=== PATIENT | female | born 1990 | race Caucasian/White ===

== ENCOUNTER 2016-05-30 14:04 | Outpatient (CLI) | payer MEDICAID ==
[2016-05-30 14:48] LABS: AMORPHOUS SEDIMENT,URINE TRACE /HPF; APPEARANCE,URINE CLOUDY; BILIRUBIN,URINE NEGATIVE (NEGATIVE); GLUCOSE, URINE NEGATIVE (NEGATIVE); KETONES,URINE NEGATIVE (NEGATIVE); LEUKOCYTE ESTERASE,URINE NEGATIVE (NEGATIVE); NITRITE,URINE NEGATIVE (NEGATIVE); PROTEIN,URINE NEGATIVE (NEGATIVE); URINE SPECIFIC GRAVITY 1.006; UROBILINOGEN,URINE NEGATIVE mg/dL (<2.0)
[2016-05-30 14:55] LABS: ABSOLUTE BASOPHILS # (AUTO) 0.1 10^3/uL (0.0-0.2); ABSOLUTE EOSINOPHILS # (AUTO) 0.2 10^3/uL (0.0-0.6); ABSOLUTE LYMPHOCYTES (AUTO) 2.7 10^3/uL (0.5-4.7); ABSOLUTE MONOCYTES (AUTO) 0.5 10^3/uL (0.1-1.4); ABSOLUTE NEUT (AUTO) 7.9 10^3/uL (1.7-8.2); BASOPHILS % (AUTO) 0.5 % (0-2); EOSINOPHILS % (AUTO) 2.2 % (0-6); HEMATOCRIT 30.9 % (36.0-47.0); HEMOGLOBIN 10.4 g/dL (12.0-15.5); HGB HCT DIFFERENCE 0.3; LYMPHOCYTES % (AUTO) 23.4 % (13-45); MEAN CORPUSCULAR HGB CONC 33.8 g/dL (32.0-36.0); MEAN CORPUSCULAR VOLUME 92 fl (80-97); MONOCYTES % (AUTO) 4.7 % (3-13); RED BLOOD COUNT 3.37 10^6/uL (3.72-5.28); SEGMENTED NEUTROPHILS % (AUTO) 69.2 % (42-78); WHITE BLOOD COUNT 11.4 10^3/uL (4.0-10.5)
[2016-05-30 15:02] LABS: URINE BARBITURATES SCREEN NEGATIVE; URINE METHADONE SCREEN NEGATIVE; URINE OPIATES LOW NEGATIVE; URINE PHENCYCLIDINE SCREEN NEGATIVE
[2016-05-30 15:13] LABS: ALANINE AMINOTRANSFERASE 19 U/L (9-52); ALBUMIN 3.4 g/dL (3.5-5.0); ALKALINE PHOSPHATASE 138 U/L (38-126); ANION GAP 12 (5-19); ASPARTATE AMINO TRANSFERASE 17 U/L (14-36); BILIRUBIN,DIRECT 0.3 mg/dL (0.0-0.4); BILIRUBIN,TOTAL 0.5 mg/dL (0.2-1.3); BLOOD UREA NITROGEN 6 mg/dL (7-20); CALCIUM 10.4 mg/dL (8.4-10.2); CARBON DIOXIDE 22 mmol/L (22-30); CHLORIDE 104 mmol/L (98-107); GLUCOSE 83 mg/dL (75-110); LDH 564 U/L (313-618); POTASSIUM 4.4 mmol/L (3.6-5.0); SODIUM 138.3 mmol/L (137-145); TOTAL PROTEIN 6.1 g/dL (6.3-8.2); URIC ACID 5.6 mg/dL (2.5-6.2)
--- NOTE | 2016-05-30 15:57 | Non Stress Test Report ---
Non Stress Test Datetime Report Generated by CPN: 05/30/2016 15:57 INDICATION Indication for Study: Ordered by Provider; Other Indication for Study (NST) Other: sent from [facility] first visit today MONITORING Monitor Explained: Monitor Explained; Test Explained; Patient Verbalized Understanding Time on Monitor: 05/30/2016 15:27 Time off Monitor: 05/30/2016 15:47 NST Duration: 20 NST INTERVENTIONS NST Interventions: PO Hydration; Reposition Patient Physician Notified NST: Dr. Neilsen BABY A: [id number] BABY A Movement : Present Contraction Frequency : irregular FHR Baseline : 130 Accelerations : 15X15 Decelerations : None Variability : Moderate 6-25bpm NST Review: Meets Criteria for Reactive NST NST Review and Verified By : rmarhefka, RN NST Results: Reactive NST REPORT Report Trigger: Send Report
--- NOTE | 2016-05-30 19:21 | L&D Discharge Summary ---
OB Discharge Summary Datetime Report Generated by CPN: 05/30/2016 19:21 DISCHARGE DIAGNOSIS Diagnosis/Symptoms: Other Diagnoses/Symptoms Other: IUP 35+2 elevated blood pressures DIET/ACTIVITY/RESTRICTIONS Diet: Regular Activity: Normal Activity TEACHING/INSTRUCTIONS/REFERRALS Instructions Given To: Pt Instructions Understood: Patient Verbalized Understanding Referrals: None Educational Materials- Other: NST Pre-eclampsia DISCHARGE INFORMATION Discharged AMA: No Discharge Date/Time: 05/30/2016 16:10 Discharged To: Home Discharge Provider Name: DrHerminio Schillingen Accompanied By: Significant Other Discharge Method: Ambulatory Condition: Stable FOLLOW UP INFORMATION Follow Up With: Other-Annotate Follow Up On: As Scheduled Follow Up Phone Number: Other-Annotate Comments: Pt instructed to follow up @ [facility] on Saturday for a NST.
== END 2016-05-30 16:10 | disposition home or self-care (01) ==
LOC: LC 14:04
PROVIDERS: ATTEND Specialist
PROC: 4A1HXCZ Monitoring of Products of Conception, Cardiac Rate, External Approach (ICD-10-PCS; principal; 2016-05-30)
DX: O16.3 Unspecified maternal hypertension, third trimester (principal); O09.33 Supervision of pregnancy with insufficient antenatal care, third trimester; Z3A.35 35 weeks gestation of pregnancy
CPT/HCPCS: 36415; 59025; 76815; 80053; 80307; 81001; 83615; 84550; 85025; 87081

== ENCOUNTER 2016-06-02 13:59 | Outpatient (CLI) | payer MEDICAID ==
--- NOTE | 2016-06-02 15:18 | Non Stress Test Report ---
Non Stress Test Datetime Report Generated by CPN: 06/02/2016 15:17 DEMOGRAPHIC EGA NST: 35.5 INDICATION Indication for Study: Ordered by Provider MONITORING Monitor Explained: Monitor Explained; Test Explained; Patient Verbalized Understanding Time on Monitor: 06/02/2016 14:15 Time off Monitor: 06/02/2016 15:07 NST Duration: 52 NST INTERVENTIONS NST Interventions: PO Hydration Physician Notified NST: Dr. Roland BABY A Movement : Present Contraction Frequency : 0 FHR Baseline : 135 Accelerations : 15X15 Decelerations : None Variability : Moderate 6-25bpm NST Review: Meets Criteria for Reactive NST NST Review and Verified By : Rachael Leyva RN NST Results: Reactive NST REPORT Report Trigger: Send Report
--- NOTE | 2016-06-02 18:19 | L&D Discharge Summary ---
OB Discharge Summary Datetime Report Generated by CPN: 06/02/2016 18:19 DISCHARGE DIAGNOSIS Diagnosis/Symptoms: Other Diagnoses/Symptoms Other: IUP 35+2 elevated blood pressures Gestation: 35.4 DIET/ACTIVITY/RESTRICTIONS Diet: Regular Activity: Normal Activity TEACHING/INSTRUCTIONS/REFERRALS Instructions Given To: Pt Instructions Understood: Patient Verbalized Understanding Referrals: None Educational Materials- Other: NST Pre-eclampsia DISCHARGE INFORMATION Discharged AMA: No Discharge Date/Time: 05/30/2016 16:10 Discharged To: Home Discharge Provider Name: DrHerminio Schillingen Accompanied By: Significant Other Discharge Method: Ambulatory Condition: Stable FOLLOW UP INFORMATION Follow Up With: Other-Annotate Follow Up On: As Scheduled Follow Up Phone Number: Other-Annotate Comments: Pt instructed to follow up @ [facility] on Satur for a NST.
--- NOTE | 2016-06-06 22:49 | L&D Current Admission ---
Current Admit Datetime Report Generated by CPN: 06/06/2016 22:45 ADMISSION INFORMATION Chief Complaint: Other (Annotations: Scheduled NST) (06/02/2016 15:14:Olive Bender RN)
--- NOTE | 2016-06-06 22:49 | L&D Discharge Summary ---
OB Discharge Summary Datetime Report Generated by CPN: 06/06/2016 22:45 DISCHARGE DIAGNOSIS Diagnosis/Symptoms: Other Diagnoses/Symptoms Other: IUP 35+2 elevated blood pressures Gestation: 35.5 DIET/ACTIVITY/RESTRICTIONS Diet: Regular Activity: Normal Activity TEACHING/INSTRUCTIONS/REFERRALS Instructions Given To: Pt Instructions Understood: Patient Verbalized Understanding Referrals: None Educational Materials- Other: NST Pre-eclampsia DISCHARGE INFORMATION Discharged AMA: No Discharge Date/Time: 05/30/2016 16:10 Discharged To: Home Discharge Provider Name: DrHerminio Schillingen Accompanied By: Significant Other Discharge Method: Ambulatory Condition: Stable FOLLOW UP INFORMATION Follow Up With: Other-Annotate Follow Up On: As Scheduled Follow Up Phone Number: Other-Annotate Comments: Pt instructed to follow up @ [facility] on Satur for a NST.
--- NOTE | 2016-06-06 22:49 | L&D General Admission ---
General Admit Datetime Report Generated by CPN: 06/06/2016 22:45 INFORMATION Patient Age: 25 (05/30/2016 14:04:QS system process) EDC: 07/02/2016 00:00 (05/30/2016 14:53:Theresa Frankels, RN) EDC: 07/02/2016 00:00 (05/30/2016 14:53:Olive Bender RN) LMP: 09/26/2015 00:00 (05/30/2016 14:53:Fanta Bonner, RN) CARE Primary Treatment Specialist: [facility] Department (05/30/2016 14:53:Fanta Bonner RN) Adequate Care: No (05/30/2016 14:53:Fanta Bonner RN) Height (in): 65 (05/30/2016 14:20:QS system process) ALLERGIES Medication Allergy: No (05/30/2016 14:53:Fanta Bonner RN) Medication Allergies: No Known Allergies (10/04/2014) (05/30/2016 14:04:QS system process) Latex Allergy: No Latex Allergies (05/30/2016 14:53:Fanta Bonner RN) COMMUNICATION Primary Language: Greenlandic (05/30/2016 14:53:Fanta Bonner RN) DEMOGRAPHICS Address: [place] [address] (05/30/2016 14:04:QS system process) Zipcode: [address] (05/30/2016 14:04:QS system process) Home (05/30/2016 14:04:QS system process) SSN: [id number] (05/30/2016 14:04:QS system process) Next of Kin Name: STEVE VILLALBA (05/30/2016 14:04:QS system process) Next of Kin (05/30/2016 14:04:QS system process) Next of Kin Relationship: FA (05/30/2016 14:04:QS system process) Date of : 1990 (05/30/2016 14:04:QS system process) Marital Status: Single (05/30/2016 14:04:QS system process) Sex: Female (05/30/2016 14:04:QS system process) Race: (05/30/2016 14:04:QS system process) Ethnicity: Non- or (05/30/2016 14:04:QS system process) Lutheran: None (05/30/2016 14:04:QS system process) VACCINE HISTORY Influenza Vaccine: No (05/30/2016 14:53:Fanta Bonner RN) Pneumococcal Vaccine: No (05/30/2016 14:53:Fanta Bonner RN) Tetanus Vaccine: Yes (05/30/2016 14:53:Fanta Bonner RN) Tdap Vaccine: No (05/30/2016 14:53:Fanta Bonner RN) Hepatitis B Vaccine: Yes (05/30/2016 14:53:Fanta Bonner RN) LABS Hemoglobin: 10.4 L (05/30/2016 14:46:QS system process) Hematocrit: 30.9 L (05/30/2016 14:46:QS system process) MCV: 92 (05/30/2016 14:46:QS system process) Group Beta Strep: 1 NO GROUP B STREPTOCOCCUS RECOVERED (05/30/2016 14:27:QS system process) OB/PREVIOUS HISTORY LMP: 09/26/2015 00:00 (05/30/2016 14:53:Fanta Bonner RN)
--- NOTE | 2016-06-07 04:49 | L&D General Admission ---
General Admit Datetime Report Generated by CPN: 06/07/2016 04:46 INFORMATION Patient Age: 25 (05/30/2016 14:04:QS system process) EDC: 07/02/2016 00:00 (05/30/2016 14:53:Theresa Frankels, RN) EDC: 07/02/2016 00:00 (05/30/2016 14:53:Olive Bender RN) LMP: 09/26/2015 00:00 (05/30/2016 14:53:Fanta Bonner, RN) CARE Primary Tissue Packer: Department (05/30/2016 14:53:Fanta Bonner RN) Adequate Care: No (05/30/2016 14:53:Fanta Bonner RN) Height (in): 65 (05/30/2016 14:20:QS system process) ALLERGIES Medication Allergy: No (05/30/2016 14:53:Fanta Bonner RN) Medication Allergies: No Known Allergies (10/04/2014) (05/30/2016 14:04:QS system process) Latex Allergy: No Latex Allergies (05/30/2016 14:53:Fanta Bonner RN) COMMUNICATION Primary Language: Malay (05/30/2016 14:53:Fanta Bonner RN) DEMOGRAPHICS Address: [place] [address] (05/30/2016 14:04:QS system process) Zipcode: [phone] (05/30/2016 14:04:QS system process) Home (05/30/2016 14:04:QS system process) SSN: [id number] (05/30/2016 14:04:QS system process) Next of Kin Name: STEVE VILLALBA (05/30/2016 14:04:QS system process) Next of Kin (05/30/2016 14:04:QS system process) Next of Kin Relationship: FA (05/30/2016 14:04:QS system process) Date of : 1990 (05/30/2016 14:04:QS system process) Marital Status: Single (05/30/2016 14:04:QS system process) Sex: Female (05/30/2016 14:04:QS system process) Race: (05/30/2016 14:04:QS system process) Ethnicity: Non- or (05/30/2016 14:04:QS system process) Mu-Ism: None (05/30/2016 14:04:QS system process) VACCINE HISTORY Influenza Vaccine: No (05/30/2016 14:53:Fanta Bonner RN) Pneumococcal Vaccine: No (05/30/2016 14:53:Fanta Bonner RN) Tetanus Vaccine: Yes (05/30/2016 14:53:Fanta Bonner RN) Tdap Vaccine: No (05/30/2016 14:53:Fanta Bonner RN) Hepatitis B Vaccine: Yes (05/30/2016 14:53:Fanta Bonner RN) LABS Hemoglobin: 10.4 L (05/30/2016 14:46:QS system process) Hematocrit: 30.9 L (05/30/2016 14:46:QS system process) MCV: 92 (05/30/2016 14:46:QS system process) Group Beta Strep: 1 NO GROUP B STREPTOCOCCUS RECOVERED (05/30/2016 14:27:QS system process) OB/PREVIOUS HISTORY LMP: 09/26/2015 00:00 (05/30/2016 14:53:Fanta Bonner RN)
--- NOTE | 2016-06-07 04:49 | L&D Discharge Summary ---
OB Discharge Summary Datetime Report Generated by CPN: 06/07/2016 04:46 DISCHARGE DIAGNOSIS Diagnosis/Symptoms: Other Diagnoses/Symptoms Other: IUP 35+2 elevated blood pressures Gestation: 35.5 DIET/ACTIVITY/RESTRICTIONS Diet: Regular Activity: Normal Activity TEACHING/INSTRUCTIONS/REFERRALS Instructions Given To: Pt Instructions Understood: Patient Verbalized Understanding Referrals: None Educational Materials- Other: NST Pre-eclampsia DISCHARGE INFORMATION Discharged AMA: No Discharge Date/Time: 05/30/2016 16:10 Discharged To: Home Discharge Provider Name: DrHerminio Schillingen Accompanied By: Significant Other Discharge Method: Ambulatory Condition: Stable FOLLOW UP INFORMATION Follow Up With: Other-Annotate Follow Up On: As Scheduled Follow Up Phone Number: Other-Annotate Comments: Pt instructed to follow up @ [facility] on Satur for a NST.
--- NOTE | 2016-06-07 04:49 | L&D Current Admission ---
Current Admit Datetime Report Generated by CPN: 06/07/2016 04:46 ADMISSION INFORMATION Chief Complaint: Other (Annotations: Scheduled NST) (06/02/2016 15:14:Olive Bender RN)
--- NOTE | 2016-06-07 10:49 | L&D Current Admission ---
Current Admit Datetime Report Generated by CPN: 06/07/2016 10:45 ADMISSION INFORMATION Chief Complaint: Other (Annotations: Scheduled NST) (06/02/2016 15:14:Olive Bender RN)
--- NOTE | 2016-06-07 10:49 | L&D Discharge Summary ---
OB Discharge Summary Datetime Report Generated by CPN: 06/07/2016 10:45 DISCHARGE DIAGNOSIS Diagnosis/Symptoms: Other Diagnoses/Symptoms Other: IUP 35+2 elevated blood pressures Gestation: 35.5 DIET/ACTIVITY/RESTRICTIONS Diet: Regular Activity: Normal Activity TEACHING/INSTRUCTIONS/REFERRALS Instructions Given To: Pt Instructions Understood: Patient Verbalized Understanding Referrals: None Educational Materials- Other: NST Pre-eclampsia DISCHARGE INFORMATION Discharged AMA: No Discharge Date/Time: 05/30/2016 16:10 Discharged To: Home Discharge Provider Name: DrHerminio Schillingen Accompanied By: Significant Other Discharge Method: Ambulatory Condition: Stable FOLLOW UP INFORMATION Follow Up With: Other-Annotate Follow Up On: As Scheduled Follow Up Phone Number: Other-Annotate Comments: Pt instructed to follow up @ [facility] on Satur for a NST.
--- NOTE | 2016-06-07 10:49 | L&D General Admission ---
General Admit Datetime Report Generated by CPN: 06/07/2016 10:45 INFORMATION Patient Age: 25 (05/30/2016 14:04:QS system process) EDC: 07/02/2016 00:00 (05/30/2016 14:53:Theresa Gordon, RN) EDC: 07/02/2016 00:00 (05/30/2016 14:53:Olive Bender RN) LMP: 09/26/2015 00:00 (05/30/2016 14:53:Fanta Bonner RN) CARE Primary Retirement Plan Counselor: [facility] Department (05/30/2016 14:53:Fanta Bonner RN) Adequate Care: No (05/30/2016 14:53:Fanta Bonner RN) Height (in): 65 (05/30/2016 14:20:QS system process) ALLERGIES Medication Allergy: No (05/30/2016 14:53:Fanta Bonner RN) Medication Allergies: No Known Allergies (10/04/2014) (05/30/2016 14:04:QS system process) Latex Allergy: No Latex Allergies (05/30/2016 14:53:Fanta Bonner RN) COMMUNICATION Primary Language: Kazakh (05/30/2016 14:53:Fanta Bonner RN) DEMOGRAPHICS Address: [place] [address] (05/30/2016 14:04:QS system process) Zipcode: [address] (05/30/2016 14:04:QS system process) Home (05/30/2016 14:04:QS system process) SSN: [id number] (05/30/2016 14:04:QS system process) Next of Kin Name: STEVE VILLALBA (05/30/2016 14:04:QS system process) Next of Kin (05/30/2016 14:04:QS system process) Next of Kin Relationship: FA (05/30/2016 14:04:QS system process) Date of : 1990 (05/30/2016 14:04:QS system process) Marital Status: Single (05/30/2016 14:04:QS system process) Sex: Female (05/30/2016 14:04:QS system process) Race: (05/30/2016 14:04:QS system process) Ethnicity: Non- or (05/30/2016 14:04:QS system process) Hinduism: None (05/30/2016 14:04:QS system process) VACCINE HISTORY Influenza Vaccine: No (05/30/2016 14:53:Fanta Bonner RN) Pneumococcal Vaccine: No (05/30/2016 14:53:Fanta Bonner RN) Tetanus Vaccine: Yes (05/30/2016 14:53:Fanta Bonner RN) Tdap Vaccine: No (05/30/2016 14:53:Fanta Bonner RN) Hepatitis B Vaccine: Yes (05/30/2016 14:53:Fanta Bonner RN) LABS Hemoglobin: 10.4 L (05/30/2016 14:46:QS system process) Hematocrit: 30.9 L (05/30/2016 14:46:QS system process) MCV: 92 (05/30/2016 14:46:QS system process) Group Beta Strep: 1 NO GROUP B STREPTOCOCCUS RECOVERED (05/30/2016 14:27:QS system process) OB/PREVIOUS HISTORY LMP: 09/26/2015 00:00 (05/30/2016 14:53:Fanta Bonner RN)
== END 2016-06-02 15:15 | disposition home or self-care (01) ==
LOC: LC 13:59
PROVIDERS: ATTEND Student in an Organized Health Care Education/Training Program
PROC: 4A1HXCZ Monitoring of Products of Conception, Cardiac Rate, External Approach (ICD-10-PCS; principal; 2016-06-02)
DX: O16.3 Unspecified maternal hypertension, third trimester (principal); Z3A.35 35 weeks gestation of pregnancy
CPT/HCPCS: 59025

== ENCOUNTER 2016-06-25 20:54 | Outpatient (CLI) | payer MEDICAID | END 2016-06-25 21:39 | disposition home or self-care (01) | LOC: LC 20:54 | PROVIDERS: ATTEND Student in an Organized Health Care Education/Training Program | PROC: 4A1HXCZ Monitoring of Products of Conception, Cardiac Rate, External Approach (ICD-10-PCS; principal; 2016-06-25) | DX: O47.1 False labor at or after 37 completed weeks of gestation (principal); Z3A.39 39 weeks gestation of pregnancy | CPT/HCPCS: 59025 ==

== ENCOUNTER 2016-06-29 10:59 | Inpatient (IN) | payer MEDICAID ==
--- NOTE | 2016-06-29 11:10 | Non Stress Test Report ---
Non Stress Test Datetime Report Generated by CPN: 06/29/2016 11:10 DEMOGRAPHIC Test Number: 4 EGA NST: 38.1 INDICATION Indication for Study: Ordered by Provider MONITORING Monitor Explained: Monitor Explained; Test Explained; Patient Verbalized Understanding Time on Monitor: 06/25/2016 21:11 Time off Monitor: 06/25/2016 21:36 NST Duration: 25 NST INTERVENTIONS NST Interventions: PO Hydration; Reposition Patient Physician Notified NST: Dr. Roland BABY A: [id number] BABY A Movement : Present Contraction Frequency : x2 FHR Baseline : 135 Accelerations : 15X15 Decelerations : None Variability : Moderate 6-25bpm NST Review: Meets Criteria for Reactive NST NST Review and Verified By : Connie Chang RN NST Results: Reactive NST REPORT Report Trigger: Send Report
[2016-06-29 11:51] LABS: AMNISURE (ROM) NEGATIVE (NEGATIVE)
[2016-06-29 12:09] LABS: AMORPHOUS SEDIMENT,URINE TRACE /HPF; APPEARANCE,URINE CLOUDY; BILIRUBIN,URINE NEGATIVE (NEGATIVE); GLUCOSE, URINE NEGATIVE (NEGATIVE); KETONES,URINE NEGATIVE (NEGATIVE); LEUKOCYTE ESTERASE,URINE NEGATIVE (NEGATIVE); NITRITE,URINE NEGATIVE (NEGATIVE); PROTEIN,URINE NEGATIVE (NEGATIVE); UROBILINOGEN,URINE NEGATIVE mg/dL (<2.0)
[2016-06-29 12:24] LABS: URINE BARBITURATES SCREEN NEGATIVE; URINE METHADONE SCREEN NEGATIVE; URINE OPIATES LOW NEGATIVE; URINE PHENCYCLIDINE SCREEN NEGATIVE
[2016-06-29 13:08] LABS: ABSOLUTE BASOPHILS # (AUTO) 0.1 10^3/uL (0.0-0.2); ABSOLUTE EOSINOPHILS # (AUTO) 0.3 10^3/uL (0.0-0.6); ABSOLUTE LYMPHOCYTES (AUTO) 2.6 10^3/uL (0.5-4.7); ABSOLUTE MONOCYTES (AUTO) 0.6 10^3/uL (0.1-1.4); BASOPHILS % (AUTO) 0.6 % (0-2); EOSINOPHILS % (AUTO) 2.1 % (0-6); HEMOGLOBIN 10.3 g/dL (12.0-15.5); HGB HCT DIFFERENCE -1.1; LYMPHOCYTES % (AUTO) 20.9 % (13-45); MEAN CORPUSCULAR HEMOGLOBIN 30.3 pg (27.0-33.4); MEAN CORPUSCULAR HGB CONC 32.3 g/dL (32.0-36.0); MEAN CORPUSCULAR VOLUME 94 fl (80-97); MONOCYTES % (AUTO) 4.7 % (3-13); RED BLOOD COUNT 3.41 10^6/uL (3.72-5.28); RED CELL DISTRIBUTION WIDTH 15.7 % (11.5-14.0); SEGMENTED NEUTROPHILS % (AUTO) 71.7 % (42-78); WHITE BLOOD COUNT 12.6 10^3/uL (4.0-10.5)
[2016-06-29] MEDS ORDERED: FENTANYL/BUPIVACAINE/NS/PF 200 MCG/100 ML RTUINJ EPI ONE (13:21)
[2016-06-29] MEDS ORDERED: EPHEDRINE SULFATE INJ 50 MG/1 ML AMPULE ONE (13:21)
[2016-06-29] MEDS ORDERED: BUPIVACAINE HCL 0.25 % INJ/PF (2.5 MG/1 ML) 30 ML VIAL ONE (13:21)
--- NOTE | 2016-06-29 14:54 | L&D Progress Notes ---
PROGRESS NOTES Datetime Report Generated by CPN: 06/29/2016 14:54 PROGRESS NOTE Impression: Normal Progression of Labor Impression: Normal Progression of Labor Procedures: Artificial ROM; Sterile Vag Exam Plan: Continue Present Management Plan: Continue Present Management Informed Consent Obtained: Vaginal Delivery Informed Consent Obtained: Vaginal Delivery Vital Signs : Reviewed; Within Normal Limits Vital Signs : Reviewed; Within Normal Limits Comment: VE = 7/100/vtx, arom, clear fluid, comfortable with epidural, uc's q 2-3 min x 60 sec, Cat 1 strip anticipate VAGINAL EXAM Dilatation: 4 Effacement: 80 Station: 0 MEMBRANES Ferning Results: Negative Membranes: Ruptured Membranes: Intact Amniotic Fluid Color: Clear FETUS A FHR - Baseline: 130 FHR - Baseline: 130 Monitoring: External US Variability: Moderate 6-25bpm Accelerations: 15X15 Decelerations: None : 38.5 SIGNATURE SIGNATURE: [id number];[id number] SIGNATURE: [id number] SIGNATURE: [id number] SIGNATURE: [id number] Assignment: Annie Nguyen MD Signature: with User ID: [email or web address] : with User ID: [email or web address]
[2016-06-29] MEDS ORDERED: LIDOCAINE 1% INJ-PF (10 MG/ML) 30 ML SDV ONE (15:07)
[2016-06-29] MEDS ORDERED: MISOPROSTOL 0.2 MG TABLET ONE (15:07)
[2016-06-29] MEDS ORDERED: OXYTOCIN/NORMAL SALINE 20 UNIT/1,000 ML RTUINJ ONE (15:08)
[2016-06-29] MEDS ORDERED: OXYTOCIN/NORMAL SALINE 1,000 ML IV PRN (17:07)
[2016-06-29] MEDS ORDERED: PSEUDOEPHEDRINE HCL 30 MG TABLET PO PRN (17:07)
[2016-06-29] MEDS ORDERED: PROMETHAZINE HCL 25 MG SUPP.RECT PR PRN (17:07)
[2016-06-29] MEDS ORDERED: DIPHENHYDRAMINE HCL 25 MG CAPSULE PO PRN (17:07)
[2016-06-29] MEDS ORDERED: MEASLES,MUMPS&RUBELLA VACC/PF 0.5 ML VIAL SUBCUT PRN (17:07)
[2016-06-29] MEDS ORDERED: PROMETHAZINE HCL INJ 25 MG/1 ML VIAL IV PRN (17:07)
[2016-06-29] MEDS ORDERED: NA PHOS,M-B/NA PHOS,DI-BA (ADULT) 133 ML ENEMA PR PRN (17:07)
[2016-06-29] MEDS ORDERED: DIBUCAINE 1% OINTMENT 28 GM TP PRN (17:07)
[2016-06-29] MEDS ORDERED: MAGNESIUM HYDROXIDE SUSP 30 ML UDCUP PO PRN (17:07)
[2016-06-29] MEDS ORDERED: GLYCERIN/WITCH HAZEL LEAF 1 EACH MED..PAD TP PRN (17:07)
[2016-06-29] MEDS ORDERED: PROMETHAZINE HCL 25 MG TABLET PO PRN (17:07)
[2016-06-29] MEDS ORDERED: ACETAMINOPHEN 650 MG SUPP.RECT PR PRN (17:07)
[2016-06-29] MEDS ORDERED: DIPH/PERTUSS(ACELL)/TETANUS VAC/PF 0.5 ML SYR (>=10YO) IM PRN (17:07)
[2016-06-29] MEDS ORDERED: BENZOCAINE/MENTHOL AEROSOL SPRAY 56 ML TOP PRN (17:07)
[2016-06-29] MEDS ORDERED: MISOPROSTOL 0.2 MG TABLET PR ONE (17:07)
[2016-06-29 17:40] LABS: ARTERIAL BLOOD BASE EXCESS -2.7 mmol/L; ARTERIAL BLOOD O2 SATURATION 44.9 % (94-98)
[2016-06-29 18:17] LABS: ALANINE AMINOTRANSFERASE 21 U/L (9-52); ALBUMIN 2.7 g/dL (3.5-5.0); ALKALINE PHOSPHATASE 143 U/L (38-126); ANION GAP 8 (5-19); ASPARTATE AMINO TRANSFERASE 22 U/L (14-36); BILIRUBIN,DIRECT 0.2 mg/dL (0.0-0.4); BILIRUBIN,TOTAL 0.2 mg/dL (0.2-1.3); BLOOD UREA NITROGEN 7 mg/dL (7-20); CALCIUM 8.7 mg/dL (8.4-10.2); CARBON DIOXIDE 20 mmol/L (22-30); CHLORIDE 108 mmol/L (98-107); CREATININE RESULT 0.49 mg/dL (0.52-1.25); GLUCOSE 76 mg/dL (75-110); LDH 472 U/L (313-618); POTASSIUM 4.4 mmol/L (3.6-5.0); SODIUM 136.1 mmol/L (137-145); TOTAL PROTEIN 5.3 g/dL (6.3-8.2); URIC ACID 5.5 mg/dL (2.5-6.2)
[2016-06-29] MEDS ORDERED: ACETAMINOPHEN WITH CODEINE #3 TABLET ONE (19:38)
[2016-06-29] MEDS ORDERED: IBUPROFEN 800 MG TABLET ONE (19:39)
[2016-06-29] MEDS ORDERED: ACETAMINOPHEN 325 MG TABLET ONE (19:50)
--- NOTE | 2016-06-29 20:34 | Delivery Summary ---
Del Sum A-C Datetime Report Generated by CPN: 06/29/2016 20:34 DELIVERY PERSONNEL DELIVERY PERSONNEL: [id number];[id number];[id number];[id number] Delivery Doctor:: Shayy Youngblood CNM Nurse Tanner Rotary Drum Continuous Process Certified:: Shayy Youngblood CNM Labor and Delivery Nurse:: Vy Hirsch RN Nursery Nurse:: Leslie Montoya RN Environmental Remediation Engineer/PHILLIP: Mercy Mclaughlin CNA II MATERNAL INFORMATION Delivery Anesthesia: Epidural Medications After Delivery: Pitocin Drip 20 Units/1000ml NSS; Cytotec 600mcg Per Rectum/Vagina Estimated Blood Loss (ml): 300 Maternal Complications: Other Other Maternal Complications: Subutex use Provider Comments: Progressed quickly, viable male from OA to BRIANA over ML lac, cord blood and cord gas to lab, Spont delivery of grossly nl intact placenta, 3 vc, EBL = 300cc, FFFM, massage, Pitocin and cytotec 600mcg via rectum Baby placed on mothers abd, cord clamped and cut after 2 min, baby remains on mothers abd for bonding, hsb at BS, plans to breast feed LABOR SUMMARY EDC: 07/08/2016 00:00 No. Babies in Womb: 1 Labor Anesthesia: Epidural LABOR INFORMATION Reason for Induction: Not Applicable Onset of Labor: 06/29/2016 14:30 Complete Dilatation: 06/29/2016 16:20 Oxytocin: N/A Group B Beta Strep: Negative Steroids Given: None Reason Steroids Not Administered: Not Applicable MEMBRANES Membranes Rupture Method: Artificial Rupture of Membranes: 06/29/2016 14:51 Length of Rupture (hr): 1.82 Amniotic Fluid Color: Clear Amniotic Fluid Amount: Moderate Amniotic Fluid Odor: Normal STAGES OF LABOR Stage 1 hr: 1 Stage 1 min: 50 Stage 2 hr: 0 Stage 2 min: 20 Stage 3 hr: 0 Stage 3 min: 10 Total Time in Labor hr: 2 Total Time in Labor min: 20 VAGINAL DELIVERY Episiotomy: None Laceration Extension: First Degree Laceration Type: Perineal Other Laceration: midline Laceration Repair: Yes Laceration Repair Note: ML lac repaired with 2-0 vicryl without difficulty Sponge Count Correct: N/A Sharps Count Correct: N/A CSECTION DELIVERY Primary Indication: N/A Secondary Indication: N/A CSection Incidence: N/A Labor: N/A Elective: N/A CSection Incision: N/A BABY A INFORMATION Infant Delivery Date/Time: 06/29/2016 16:40 Method of Delivery: Vaginal Born in Route : No : N/A Forceps: N/A Vacuum Extraction: N/A Shoulder Dystocia : No PRESENTATION/POSITION BABY A Presentation: Cephalic Cephalic Presentation: Vertex Vertex Position: Left Occipital Anterior Breech Presentation: N/A PLACENTA INFORMATION BABY A Placenta Delivery Time : 06/29/2016 16:50 Placenta Method of Delivery: Spontaneous Placenta Status: Delivered SCORES BABY A Heart Rate 1 min: >100 bpm Resp Effort 1 min: Good Cry Reflex Irritability 1 min: Cough or Sneeze or Pulls Away Muscle Tone 1 min: Active Motion Color 1 min: Blue/Pale Resuscitation Effort 1 min: Tactile Stimulation SCORE 1 MIN: 8 Heart Rate 5 min: >100 bpm Resp Effort 5 min: Good Cry Reflex Irritability 5 min: Cough or Sneeze or Pulls Away Muscle Tone 5 min: Active Motion Color 5 min: Body Orrum, Extremities Blue Resuscitation Effort 5 min: Tactile Stimulation SCORE 5 MIN: 9 INFORMATION BABY A Gestational Age at Delivery: 38.5 Gestational Status: Early Term- 37- 38.6 Weeks Outcome : Liveborn Condition : Stable Infant Sex: Male IDENTIFICATION BABY A Verification Date/Time: 06/29/2016 17:17 ID Band Number: [id number] Mother's Name Verified: Yes Infant RN Verifying Infant: AHerminio Rayine RN / D. Senthil RNC WEIGHT/LENGTH BABY A Infant Birthweight (gm): 3440 Infant Weight (lb): 7 Infant Weight (oz): 9 Length (in): 20.50 Length (cm): 52.07 CORD INFORMATION BABY A No. Cord Vessels: 3 Nuchal Cord : N/A Cord Blood Taken: Yes-For Storage (Mom's Blood type +) Suction: None ASSESSMENT BABY A Infant Complications: None Physical Findings at Delivery: Within Normal Limits Infant Respirations: Appears Normal Skin to Skin: Yes Skin to Skin Time (min): 65 Meat Hostess/ALS Called : No Infant Care By: Cosmo Montoya RN Transferred To: Remains with Mother
[2016-06-29] MEDS: FAMOTIDINE 20 MG TABLET PO SCH (23:23)
[2016-06-29] MEDS: IBUPROFEN 800 MG TABLET PO SCH (23:23)
[2016-06-29] MEDS: DOCUSATE SODIUM 100 MG CAPSULE PO SCH (23:23)
[2016-06-29] MEDS: FERROUS SULFATE 325 MG TABLET PO SCH (23:23)
[2016-06-30] MEDS: IBUPROFEN 800 MG TABLET PO SCH ×3 (06:08→21:16)
[2016-06-30 07:42] LABS: HEMATOCRIT 29.7 % (36.0-47.0); HEMOGLOBIN 10.1 g/dL (12.0-15.5); HGB HCT DIFFERENCE 0.6; MEAN CORPUSCULAR HEMOGLOBIN 31.2 pg (27.0-33.4); MEAN CORPUSCULAR HGB CONC 33.9 g/dL (32.0-36.0); MEAN CORPUSCULAR VOLUME 92 fl (80-97); RED BLOOD COUNT 3.23 10^6/uL (3.72-5.28); RED CELL DISTRIBUTION WIDTH 15.6 % (11.5-14.0); WHITE BLOOD COUNT 12.7 10^3/uL (4.0-10.5)
--- NOTE | 2016-06-30 08:45 | PDOC PROGRESS REPORT ---
Subjective-OB Subjective: Post Delivery Day: 25 year old. Denies any needs at this time Doing well, no c/o, ambulating, taking diet well, scant lochia Physical Exam (OB) Vital Signs: Temp Pulse Resp BP Pulse Ox 98.0 F 98 18 131/75 H 99 06/30/16 04:00 06/30/16 03:13 06/30/16 03:13 06/30/16 03:13 06/30/16 03:13 Intake & Output 06/29/16 06/30/16 07/01/16 06:59 06:59 06:59 Weight 68.15 kg - Lochia Lochia Amount: Small 10-25 ml Lochia Color: Rubra/Red - Abdomen Description: Soft, Round Hernia Present: No Fundal Description: Firm, Midline Fundal Height: u/u - u/2 Objective-Diagnostic Laboratory: 06/30/16 07:21 06/29/16 17:39 06/29/16 06/29/16 06/29/16 11:12 12:47 12:47 WBC 12.6 H RBC 3.41 L Hgb 10.3 L Hct 32.0 L MCV 94 MCH 30.3 MCHC 32.3 RDW 15.7 H Plt Count 301 Seg Neutrophils % 71.7 Lymphocytes % 20.9 Monocytes % 4.7 Eosinophils % 2.1 Basophils % 0.6 Absolute Neutrophils 9.0 H Absolute Lymphocytes 2.6 Absolute Monocytes 0.6 Absolute Eosinophils 0.3 Absolute Basophils 0.1 Carbonic Acid HCO3/H2CO3 Ratio ABG pH ABG pCO2 ABG pO2 ABG HCO3 ABG O2 Saturation ABG Base Excess FiO2 Sodium Potassium Chloride Carbon Dioxide Anion Gap BUN Creatinine Est GFR ( Amer) Est GFR (Non-Af Amer) Glucose Uric Acid Calcium Total Bilirubin AST ALT Alkaline Phosphatase Total Protein Albumin Urine Color YELLOW Urine Appearance CLOUDY Urine pH 8.0 Ur Specific [place] 1.010 Urine Protein NEGATIVE Urine Glucose (UA) NEGATIVE Urine Ketones NEGATIVE Urine Blood NEGATIVE Urine Nitrite NEGATIVE Ur Leukocyte Esterase NEGATIVE Urine RBC (Auto) 1 Blood Type A POSITIVE Antibody Screen NEGATIVE 06/29/16 06/29/16 06/30/16 16:40 17:39 07:21 WBC 12.7 H RBC 3.23 L Hgb 10.1 L Hct 29.7 L MCV 92 MCH 31.2 MCHC 33.9 RDW 15.6 H Plt Count 289 Seg Neutrophils % Lymphocytes % Monocytes % Eosinophils % Basophils % Absolute Neutrophils Absolute Lymphocytes Absolute Monocytes Absolute Eosinophils Absolute Basophils Carbonic Acid 1.26 HCO3/H2CO3 Ratio 18:1 ABG pH 7.35 ABG pCO2 42.0 ABG pO2 26.0 L* ABG HCO3 22.8 ABG O2 Saturation 44.9 L ABG Base Excess -2.7 FiO2 CORDBLOOD Sodium 136.1 L Potassium 4.4 Chloride 108 H Carbon Dioxide 20 L Anion Gap 8 BUN 7 Creatinine 0.49 L Est GFR ( Amer) > 60 Est GFR (Non-Af Amer) > 60 Glucose 76 Uric Acid 5.5 Calcium 8.7 Total Bilirubin 0.2 AST 22 ALT 21 Alkaline Phosphatase 143 H Total Protein 5.3 L Albumin 2.7 L Urine Color Urine Appearance Urine pH Ur Specific [place] Urine Protein Urine Glucose (UA) Urine Ketones Urine Blood Urine Nitrite Ur Leukocyte Esterase Urine RBC (Auto) Blood Type Antibody Screen Assessment and Plan(PN) - Assessment and Plan (1) Smoker Is this a current diagnosis for this admission?: Yes (2) Late care Is this a current diagnosis for this admission?: Yes (3) complicated by subutex maintenance, antepartum Is this a current diagnosis for this admission?: Yes (4) Normal vaginal delivery Is this a current diagnosis for this admission?: Yes (5) Anemia Qualifiers: Anemia type: iron deficiency Is this a current diagnosis for this admission?: Yes - Time Spent with Patient Time with patient: Less than 15 minutes Smoking Education Provided: Over 3 minutes Medications reviewed and adjusted accordingly: Yes - Disposition Anticipated Discharge: Home Within: within 24 hours
[2016-06-30] MEDS: FAMOTIDINE 20 MG TABLET PO SCH ×2 (09:13→21:16)
[2016-06-30] MEDS: DOCUSATE SODIUM 100 MG CAPSULE PO SCH ×2 (09:13→17:13)
[2016-06-30] MEDS: FERROUS SULFATE 325 MG TABLET PO SCH ×2 (09:14→17:13)
[2016-06-30] MEDS: PRENATAL VITAMIN W-O CA NO5/FE FUMARATE/FA CAPSULE PO SCH (09:15)
[2016-06-30] MEDS: SENNOSIDES/DOCUSATE 8.6-50 MG 1 EACH TABLET PO SCH (10:30)
[2016-06-30] MEDS: ACETAMINOPHEN 325 MG TABLET PO PRN ×2 (13:34→21:16)
[2016-07-01] MEDS: IBUPROFEN 800 MG TABLET PO SCH (05:35)
[2016-07-01] MEDS: ACETAMINOPHEN 325 MG TABLET PO PRN (05:36)
[2016-07-01] MEDS: DOCUSATE SODIUM 100 MG CAPSULE PO SCH (09:51)
[2016-07-01] MEDS: FAMOTIDINE 20 MG TABLET PO SCH (09:51)
[2016-07-01] MEDS: SENNOSIDES/DOCUSATE 8.6-50 MG 1 EACH TABLET PO SCH (09:51)
[2016-07-01] MEDS: PRENATAL VITAMIN W-O CA NO5/FE FUMARATE/FA CAPSULE PO SCH (09:51)
[2016-07-01] MEDS: FERROUS SULFATE 325 MG TABLET PO SCH (09:52)
--- NOTE | 2016-07-01 09:59 | PDOC PROGRESS REPORT ---
Subjective-OB Subjective: Post Delivery Day: 25 year old. Denies any needs at this time Doing well, ready to be d/c, OOB walking in room, baby in room, so far baby is scoring low, baby will be here for 5 days unless score is higher and will stay longer, scant lochia, taking own subutex, fob at [facility] Physical Exam (OB) Vital Signs: Temp Pulse Resp BP Pulse Ox 98.2 F 92 16 142/85 H 100 07/01/16 03:13 07/01/16 07:43 07/01/16 07:43 07/01/16 07:43 07/01/16 07:43 Intake & Output 06/30/16 07/01/16 07/02/16 06:59 06:59 06:59 Weight 68.15 kg - PIH/Pre-Eclampsia Clonus: Negative - Lochia Lochia Amount: Scant < 10 ml Lochia Color: Rubra/Red - Abdomen Description: Tender, Soft Hernia Present: No Fundal Description: Firm, Midline Fundal Height: u/u - u/2 Objective-Diagnostic Laboratory: 06/30/16 07:21 06/29/16 17:39 Assessment and Plan(PN) - Assessment and Plan (1) Smoker Is this a current diagnosis for this admission?: Yes (2) Late care Is this a current diagnosis for this admission?: Yes (3) complicated by subutex maintenance, antepartum Is this a current diagnosis for this admission?: Yes (4) Normal vaginal delivery Is this a current diagnosis for this admission?: Yes (5) Anemia Qualifiers: Anemia type: iron deficiency Is this a current diagnosis for this admission?: Yes - Time Spent with Patient Time with patient: Less than 15 minutes Smoking Education Provided: Over 3 minutes Medications reviewed and adjusted accordingly: Yes - Disposition Anticipated Discharge: Home Within: Other - home today
--- NOTE | 2016-07-01 10:14 | PDOC DISCHARGE SUMMARY ---
Final Diagnosis Discharge Date: 07/01/16 - Final Diagnosis (2) Late care Is this a current diagnosis for this admission?: Yes (3) complicated by subutex maintenance, antepartum Is this a current diagnosis for this admission?: Yes (4) Normal vaginal delivery Is this a current diagnosis for this admission?: Yes (5) Anemia Is this a current diagnosis for this admission?: Yes Discharge Data - Discharge Medication Home Medications: Buprenorphine HCl/Naloxone HCl [Suboxone 12 mg-3 mg Sl Film] 18 mg PO DAILY 04/10 Pnv No.122/Iron/Folic Acid [ Multi Tablet] 1 tab PO DAILY 10/04/14 Gestational Age: 38.5 Reason(s) for Admission: Onset of Labor, Medical Complications Admission Note: suntex Procedures: NST, Ultrasound Intrapartum Procedure(s): Spontaneous Vaginal Delivery Complication(s): Laceration-Perineal Laceration-Degree: 1st - [place] Data Baby 1 Male at 1 minute: 8 at 5 minutes: 9 Weight: 3.43 kg Home with Mother: Yes Complications: No - Diagnosis Test Laboratory: Temp Pulse Resp BP Pulse Ox 98.2 F 92 16 142/85 H 100 07/01/16 03:13 07/01/16 07:43 07/01/16 07:43 07/01/16 07:43 07/01/16 07:43 06/29/16 06/29/16 06/30/16 11:12 12:47 07:21 RBC 3.41 L 3.23 L Hgb 10.3 L 10.1 L Hct 32.0 L 29.7 L Urine Opiates Screen NEGATIVE - Discharge information/Instructions Discharge Activity: Activity As Tolerated, Balance Activity w/Rest, No Lifting Over 10 Pounds, No Lifting/Push/Pulling, Pelvic Rest, No tub bath Discharge Diet: As Tolerated, Regular Disposition: HOME, SELF-CARE Follow up with: [facility] in: 1, Weeks
[2016-07-01 10:24] VITALS: BP 128/84
== END 2016-07-01 10:36 | disposition home or self-care (01) | DRG 775 ==
LOC: LC 10:59 → LR 12:04 → 2S 20:00
PROVIDERS: ADMIT Specialist; ATTEND Specialist
PROC: 10E0XZZ Delivery of Products of Conception, External Approach (ICD-10-PCS; principal; 2016-06-29)
PROC: 0HQ9XZZ Repair Perineum Skin, External Approach (ICD-10-PCS; 2016-06-29)
DX: O99.334 Smoking (tobacco) complicating childbirth (principal); F17.210 Nicotine dependence, cigarettes, uncomplicated; O99.02 Anemia complicating childbirth; D64.9 Anemia, unspecified; O70.0 First degree perineal laceration during delivery; O62.3 Precipitate labor; Z3A.38 38 weeks gestation of pregnancy; Z37.0 Single live birth; O09.33 Supervision of pregnancy with insufficient antenatal care, third trimester; Z79.891 Long term (current) use of opiate analgesic
CPT/HCPCS: 36415; 80053; 80307; 81001; 82803; 83615; 84112; 84550; 85025; 85027; 86592; 86850; 86900; 86901; 88307; J2590; J3490